=== PATIENT | female | born 1935 | race Caucasian/White ===

== ENCOUNTER → 2017-01-16 | Outpatient (CLI) | payer MEDICARE, BC ==
[~2017-01-16] MED LIST: AMBIEN 10MG10 MG PO; AMBIEN 5MG TABLE5 MG PO; AMBIEN10 MG PO; ASPIR-LOW81 MG PO; ASPIRIN E.C. 8181 MG PO; ASTELIN NASAL S34 ML NS; ATENOLOL PO; ATENOLOL50 MG PO; ATIVAN 0.50.5 MG/TAB PO; ATIVAN0.5 MG PO; ATORVASTATIN; AZO-CRANBERRY450 MG PO; BENADRYL; CALCIUM CITRAT200 MG PO; CARDI-OMEGA1000 MG PO; CATAPRES 0.1MG0.1 MG PO; CECLOR 250MG250 MG PO; CENTRUM SILVER1 TA1 PO; CENTRUM SILVER1 TA2 PO; CENTRUM SILVER1 TAB PO; CIPRO 500MG TA500 MG PO; CITRACAL + D 311 TAB PO; CITRACAL + D CA1 TAB PO; CLARITIN10 MG PO; COLACE 100100 MG/CAP PO; COREG 25MG25 MG/TAB PO; COREG12.5 MG PO; COREG25 MG PO; COUMADIN 5MG5 MG/TAB PO; COUMADIN3 MG PO; COUMADIN4 MG PO; COZAAR100 MG PO; CYANOCOBAL1000 MCG/1; DAZIDOX10 MG PO; DIAZIDE; DIOVAN160 M1 PO; DIOVAN160 MG PO; DYAZIDE 25 MG-31 CAP PO; EXCEDRIN 250 MG1 TAB PO; EXCEDRIN TENSION HA PO; EXCEDRIN1 TAB PO; FIBER CHOICE1 CTB PO; FIORICET W/CODE1 CA1 PO; FISH OIL CONC1000 MG PO; FISH OIL1000 MG PO; FLEXERIL 1010 MG/TAB PO; FLEXERIL10 MG PO; FLONASE NASAL S16 GM NS; FOLIC ACID 40400 MCG PO; FOLIC ACID PO; FOLIC ACID800 MCG PO; IBUPROFEN; IRON325 M1 PO; LEVAQUIN 250MG250 MG PO; LEVAQUIN 5500 MG/TA1 PO; LIPITOR 10MG10 MG PO; LIPITOR20 MG PO; LISINOPRIL20 MG PO; LISINOPRIL5 MG PO; LORTAB 5/500 501 TAB PO; LORTAB 7.5/5001 TAB PO; MACROBID 1100 MG/CAP PO; MACROBID100 MG PO; MAXZIDE-25MG TA1 TAB PO; MEPEREDINE50 MG PO; METRONIDAZOLE500 MG PO; MIRALAX PA17 GM/Dose PO; MIRALAX17 GM/DOSE PO; NEURONTIN100 MG/CAP PO; NORCO 325 MG-101 TAB PO; NORCO 325 MG-7.1 TAB PO; NORVASC 10MG10 MG PO; NORVASC 5MG5 MG/TAB PO; NORVASC5 MG PO; PLAVIX 75MG TAB75 MG PO; POLY IRON PN1 TAB PO; PREDNISONE20 MG PO; PREMARIN VAG42.5 GM VG; PRILOSEC 20MG20 MG PO; PRILOSEC10 MG PO; PRINIVIL20 MG PO; PROMETHAZINE V473 M2 PO; ROXICODONE 55 MG/TAB PO; SOMA 350MG350 MG/TAB PO; STOOL SOFTENER; STOOL SOFTENER100 M1 PO; TENORMIN50 MG PO; TRIAMTERENE W/H1 CAP PO; TRIMPEX100 MG PO; TUSSIN DM 10 M118 M1 PO; TYLENOL 500MG500 MG PO; TYLENOL EXTRA500 M1 PO; ULTRAM 50MG TAB50 MG PO; VITAMIN C PURE500 M1 PO; VITAMIN C500 MG PO; ZINC NATURAL50 MG PO; ZINC SO4 PO; ZINC50 M2 PO; ZITHROMAX Z PA250 MG PO; [UNRECOGNIZED DRUG - OTHER]
[2017-01-16 11:56] LABS: BASO # 0.1 (0.0-0.2); EOS # 0.1 (0.0-0.7); EOS % 0.7 % (0-4.0); GRAN # 7.3 (1.4-6.5); HEMATOCRIT 43.7 % (37.0-47.0); HEMOGLOBIN 14.9 g/dl (12.5-16.0); LYMPH # 1.5 (1.2-3.4); LYMPH % 15.5 % (20.0-51.0); MEAN CELL VOLUME 90 fl (80.0-100.0); MEAN CORPUSCULAR HEMOGLOBIN 31 pg (27.0-31.0); MEAN CORPUSCULAR HGB CONC 34 g/dl (33.0-37.0); MEAN PLATELET VOLUME 9.3 fl (7.4-10.4); MONO # 0.4 (0.1-0.6); MONO % 4.6 % (1.7-9.3); PLATELET COUNT 217 K/mm3 (130-400); RED BLOOD COUNT 4.88 M/mm3 (4.10-5.30); REDCELL DISTRIBUTION WIDTH-CV 13.3 % (11.5-14.5); WHITE BLOOD COUNT 9.3 K/mm3 (4.8-10.8)
[2017-01-16 12:00] LABS: ADJUSTED CALCIUM 9.5 mg/dL (8.4-10.2); ALBUMIN 4.3 gm/dL (3.5-5.0); CALCIUM 9.7 mg/dL (8.4-10.2); CREATININE, serum 0.77 mg/dL (0.52-1.25); POTASSIUM 3.6 mmol/L (3.4-5.0); TOTAL PROTEIN 7.5 gm/dL (6.4-8.2)
== END ==
LOC: COL.LAB 10:41
PROVIDERS: Family Medicine
DX: K52.89 Other specified noninfective gastroenteritis and colitis (principal)

== ENCOUNTER 2017-04-29 21:06 | Emergency (ER) | payer MEDICARE, BC ==
[2008-05-01 10:55] VITALS: BP 165/90
[~2017-04-29] VITALS: Ht 154.9 cm; Wt 80.0 kg
[~2017-04-29 21:06] MED LIST changes: -MACROBID 1100 MG/CAP PO; -MAXZIDE-25MG TA1 TAB PO
[2017-04-29] MEDS ORDERED: MAXZIDE-25MG TA1 TAB PO (21:13)
[2017-04-29 21:24] LABS: BASO # 0.1 (0.0-0.2); BASO % 1.1 % (0.0-2.0); EOS # 0.1 (0.0-0.7); EOS % 2.3 % (0-4.0); GRAN # 2.3 (1.4-6.5); GRAN % 43.6 % (42.2-75.2); HEMATOCRIT 38.5 % (37.0-47.0); HEMOGLOBIN 13.2 g/dl (12.5-16.0); LYMPH # 2.3 (1.2-3.4); LYMPH % 43.1 % (20.0-51.0); MEAN CELL VOLUME 89 fl (80.0-100.0); MEAN CORPUSCULAR HEMOGLOBIN 30 pg (27.0-31.0); MEAN CORPUSCULAR HGB CONC 34 g/dl (33.0-37.0); MEAN PLATELET VOLUME 9.5 fl (7.4-10.4); MONO # 0.5 (0.1-0.6); MONO % 9.7 % (1.7-9.3); PLATELET COUNT 174 K/mm3 (130-400); RED BLOOD COUNT 4.34 M/mm3 (4.10-5.30); WHITE BLOOD COUNT 5.2 K/mm3 (4.8-10.8)
[2017-04-29 21:41] LABS: ADJUSTED CALCIUM 8.8 mg/dL (8.4-10.2); ALANINE AMINOTRANSFERASE 24 U/L (9-52); ALKALINE PHOSPHATASE 74 U/L (50-136); ANION GAP 9 mmol/L (7-16); BILIRUBIN,TOTAL 0.6 mg/dL (0.0-1.0); BLOOD UREA NITROGEN 13 mg/dL (7-17); CALCIUM 8.8 mg/dL (8.4-10.2); CARBON DIOXIDE 29 mmol/L (22-30); CHLORIDE 96 mmol/L (98-107); CREATININE, serum 0.69 mg/dL (0.52-1.25); GLUCOSE 89 mg/dL (74-106); LIPASE 69 U/L (23-300); POTASSIUM 3.1 mmol/L (3.4-5.0); SODIUM 135 mmol/L (137-145); TOTAL PROTEIN 6.6 gm/dL (6.4-8.2)
[2017-04-29 21:43] LABS: C-REACTIVE PROTEIN < 0.5 mg/dL (0.0-0.9)
[2017-04-29 21:52] LABS: PH 7 (5-8); SQUAMOUS EPITHELIAL 0-2 /hpf; URINE APPEARANCE Hazy; URINE BACTERIA Rare /hpf; URINE BILIRUBIN Negative (NEGATIVE); URINE BLOOD Negative (NEGATIVE); URINE COLOR Yellow; URINE GLUCOSE Negative (NEGATIVE); URINE KETONE Negative (NEGATIVE); URINE RBC 0-2 /hpf; URINE UROBILINOGEN Negative (NEGATIVE)
[2017-04-29 21:53] LABS: URINE WBC >50 /hpf
[2017-04-29 21:55] LABS: ERYTHROCYTE SEDIMENTATION RATE 2 mm/hr (0-30)
[2017-04-29] MEDS ORDERED: CIPRO 500MG TA500 MG PO (22:11)
[2017-04-29 22:29] VITALS: BP 159/94; PULSE 79
== END 2017-04-29 22:29 | disposition home or self-care (01) ==
LOC: COL.ER 21:06
PROVIDERS: Family Medicine
DX: R42 Dizziness and giddiness (principal); R51 Headache; N30.00 Acute cystitis without hematuria; I10 Essential (primary) hypertension; K21.9 Gastro-esophageal reflux disease without esophagitis; Z90.49 Acquired absence of other specified parts of digestive tract
CPT/HCPCS: J2405; J7030

== ENCOUNTER 2017-05-03 06:56 | Emergency (ER) | payer MEDICARE, BC ==
[2008-05-01 10:55] VITALS: BP 165/90
[~2017-05-03] VITALS: Ht 154.9 cm; Wt 80.0 kg
[~2017-05-03 06:56] MED LIST changes: +MAXZIDE-25MG TA1 TAB PO
[2017-05-03 06:59] VITALS: TEMP 98.1
[2017-05-03 08:10] LABS: ALANINE AMINOTRANSFERASE 25 U/L (9-52); ALBUMIN 4.1 gm/dL (3.5-5.0); ALKALINE PHOSPHATASE 85 U/L (50-136); ANION GAP 10 mmol/L (7-16); BILIRUBIN,TOTAL 0.6 mg/dL (0.0-1.0); BLOOD UREA NITROGEN 12 mg/dL (7-17); CALCIUM 9.1 mg/dL (8.4-10.2); CARBON DIOXIDE 28 mmol/L (22-30); CHLORIDE 94 mmol/L (98-107); CREATININE, serum 0.71 mg/dL (0.52-1.25); GLUCOSE 99 mg/dL (74-106); LIPASE 100 U/L (23-300); POTASSIUM 3.5 mmol/L (3.4-5.0); SODIUM 132 mmol/L (137-145)
[2017-05-03 08:11] LABS: C-REACTIVE PROTEIN < 0.5 mg/dL (0.0-0.9)
[2017-05-03 08:23] LABS: BASO # 0.1 (0.0-0.2); BASO % 1.1 % (0.0-2.0); EOS # 0.1 (0.0-0.7); EOS % 2.6 % (0-4.0); GRAN # 3.2 (1.4-6.5); GRAN % 58.8 % (42.2-75.2); HEMATOCRIT 39.9 % (37.0-47.0); HEMOGLOBIN 13.8 g/dl (12.5-16.0); LYMPH # 1.5 (1.2-3.4); LYMPH % 27.4 % (20.0-51.0); MEAN CELL VOLUME 88 fl (80.0-100.0); MEAN CORPUSCULAR HEMOGLOBIN 31 pg (27.0-31.0); MEAN CORPUSCULAR HGB CONC 35 g/dl (33.0-37.0); MEAN PLATELET VOLUME 9.6 fl (7.4-10.4); MONO # 0.5 (0.1-0.6); MONO % 9.7 % (1.7-9.3); PLATELET COUNT 196 K/mm3 (130-400); RED BLOOD COUNT 4.53 M/mm3 (4.10-5.30); WHITE BLOOD COUNT 5.4 K/mm3 (4.8-10.8)
[2017-05-03 08:40] LABS: PH 7 (5-8); SQUAMOUS EPITHELIAL None Seen /hpf; URINE APPEARANCE Clear; URINE BACTERIA None Seen /hpf; URINE BILIRUBIN Negative (NEGATIVE); URINE BLOOD Negative (NEGATIVE); URINE COLOR Straw; URINE GLUCOSE Negative (NEGATIVE); URINE KETONE Negative (NEGATIVE); URINE RBC 0-2 /hpf; URINE UROBILINOGEN Negative (NEGATIVE); URINE WBC 0-2 /hpf
[2017-05-03] MEDS ORDERED: MACROBID 1100 MG/CAP PO (09:17)
[2017-05-03 09:56] VITALS: BP 153/94; PULSE 93
== END 2017-05-03 10:20 | disposition home or self-care (01) ==
LOC: COL.ER 06:56
PROVIDERS: Family Medicine
DX: N39.0 Urinary tract infection, site not specified (principal); F32.9 Major depressive disorder, single episode, unspecified; Z87.891 Personal history of nicotine dependence
CPT/HCPCS: J0696; J2405; J7030

== ENCOUNTER → 2017-07-25 | Outpatient (CLI) | payer MEDICARE, BC ==
[~2017-07-25] MED LIST changes: +MACROBID 1100 MG/CAP PO
== END ==
LOC: MC.RAD 07-18 11:40
DX: Z12.31 Encounter for screening mammogram for malignant neoplasm of breast (principal)

== ENCOUNTER → 2017-11-12 | Outpatient (CLI) | payer MEDICARE, BC | LOC: COL.RAD 15:00 | DX: N30.20 Other chronic cystitis without hematuria (principal); Z96.0 Presence of urogenital implants ==

== ENCOUNTER → 2018-01-30 | Outpatient (CLI) | payer MEDICARE, BC | LOC: COL.RAD 08:58 | DX: M19.071 Primary osteoarthritis, right ankle and foot (principal) | CPT/HCPCS: J3301; Q9967 ==

== ENCOUNTER → 2018-04-30 | Outpatient (CLI) | payer MEDICARE, BC | LOC: COL.RAD 14:25 | DX: M25.551 Pain in right hip (principal) | CPT/HCPCS: J3301; Q9967 ==

== ENCOUNTER → 2018-09-08 | Outpatient (CLI) | payer MEDICARE, BC | LOC: MC.RAD 11:40 | DX: Z12.31 Encounter for screening mammogram for malignant neoplasm of breast (principal) ==

== ENCOUNTER 2018-10-09 12:51 | Inpatient (IN) | payer MEDICARE, BC ==
[~2018-10-09] VITALS: Ht 154.9 cm; Wt 73.1 kg
[2018-11-19] VITALS (10 sets, daily range): BP systolic 110–141; BP diastolic 65–82; PULSE 65–75; TEMP 98–98.2
--- NOTE | 2018-11-19 08:45 | NUR ---
arrived per WC to room 331, prepped for surgery without incident, explanation given to patient and her for going to and returning from surgery, verbalizes understanding, assisted up to bathroom and then back to bed
--- NOTE | 2018-11-19 10:50 | NUR ---
appears to be sleeping, in bed with eyes closed, resp quiet and easy
--- NOTE | 2018-11-19 11:14 | NUR ---
assisted up to bathroom and voided qs, then back to bed
--- NOTE | 2018-11-19 13:40 | NUR ---
to surgery per bed
--- NOTE | 2018-11-19 17:20 | NUR ---
returned to room from PACU per bed, awake and alert, IV infusing and placed on pump at 125ml/hr, O2 on at 3L\NC and O2 sat 100%, SCDs and RAUL hose on bilaterally, has aquacel dressing to right hip CD&I with ice, rolled to side and no wrinkles in linens or wires under patient, lovett cath patent draining clear yellow urine, full assessment completed, see interventions for further info, has sensation to foot on the left and to her knee on the right, is able to move ankle on the left and only gross motor movement to right, denies needs, at bedside
--- NOTE | 2018-11-19 17:45 | NUR ---
rests between checks, states she is hungry, provided applesauce, if tolerates well will order regular food, instructed on ordering and verbalizes understanding
--- NOTE | 2018-11-19 18:10 | NUR ---
has ordered something to eat
--- NOTE | 2018-11-19 18:54 | NUR ---
bedside shift report given to JOANNA Magallanes, has sensation to feet and is able to do ankle pump, eating supper
--- NOTE | 2018-11-19 21:00 | NUR ---
Assessment completed. Patient is A&O x 4. Post-op vitals stable. Currently on 3 liters of supplemental O2 via nasal cannula per orders. Began oral pain medication this evening. Bulky foam tape dressing to right hip is CDI with an ice pack maintained to hip. Pedal pulses intact. BLE mary hose/scds on. Encouraged ankle pumps when able to do so. Tolerated diet with no c/o nausea. Arthur catheter to DD with yellow clear urine draining. IVF infusing with intermittent antibiotic. Patient reported sensation to feet and was able to wiggle toes, unable to lift or move feet. Dangled on the edge of the bed with assist x 2 this evening. Assisted with repositioning back into to bed. Denies any concerns or needs, call light is within reach.
[2018-11-20 00:48] VITALS: BP 114/58; PULSE 91; TEMP 98.6
--- NOTE | 2018-11-20 05:24 | NUR ---
Patient has rested well the first half of the night and then took a prn Ambien to assist with sleep and has been able to sleep for short periods of time since then. VSS. Aquacell dressing to right hip remains CDI with a fresh ice pack applied this morning. Arthur catheter remains to DD with yellow clear urine draining. IVF infusing per orders. Denies any concerns or needs at this time. Bed is in a low position with call light in reach.
[2018-11-20 05:46] VITALS: BP 104/60; PULSE 87; TEMP 98.2
[2018-11-20 06:21] LABS: HEMOGLOBIN 12.4 g/dl (12.5-16.0)
[2018-11-20 06:30] LABS: HEMATOCRIT 36.3 % (37.0-47.0)
[2018-11-20 09:07] VITALS: BP 104/50; PULSE 80; TEMP 98.1
--- NOTE | 2018-11-20 10:22 | NUR ---
First visit from the behavioral specialist. No needs right now.
[2018-11-20 12:19] VITALS: BP 135/98; PULSE 83; TEMP 97.8
--- NOTE | 2018-11-20 15:58 | NUR ---
KAZ and SW student met with patient to discuss discharge planning. Patient lives in [place] with her Ricardo. patients PCP is Dr Alvaro Keys and she obtains her medications from [facility]. Patient would like to go to [facility] and [facility] if they do not have a bed. Choice form obtained and placed on chart. KAZ called jolene at [facility] bed and made referrals.
[2018-11-20 16:13] VITALS: BP 108/52; PULSE 82; TEMP 98.3
--- NOTE | 2018-11-20 20:00 | NUR ---
Patient in bed resting, alert and oriented x 3. Shift assessment complete. Aquacell to right hip with minimal drainage present. Ice pack maintained to hip. Pedal pulses intact. SCD's and Marc hose to BLE. Patient up to restroom, stand by assist. Voided clear yellow urine. Ambulated >30 feet with walker. States she would like something for pain but will call when she needs it. Assisted patient to reposition in bed. Denies further needs at this time.
[2018-11-20 20:50] VITALS: BP 125/65; PULSE 79; TEMP 98.6
[2018-11-21 04:09] VITALS: BP 121/59; PULSE 87; TEMP 98.2
--- NOTE | 2018-11-21 06:22 | NUR ---
Patient has rested intermittently through the night. Has been up multiple times to the restroom, stand by assist with walker. Patient has complained of pain to right hip and requested pain medications through the night; Medications given per orders. Ice maintained to right hip. SCDs and Tedhose maintained to BLE. Denies further needs at this time. Will report off to day shift.
--- NOTE | 2018-11-21 07:14 | NUR ---
REPORT FROM MARIE MARSHALL. PT RESTING IN BED. PLAN ON TRANSFER TO [facility]. REQUEST MILL STENCILER FOLLOW UP WITH SWB CORDINATOR THERE. GEMA SUAREZ APRN ATTEMPTED TO CONTACT [facility] FOR PROVIDER TO PROVIDER REPORT AND THEY DID NOT HAVE THIS PATEINT ON LIST OF TRANSFERS.
[2018-11-21] MEDS ORDERED: XARELTO10 MG PO (07:32)
[2018-11-21] MEDS ORDERED: ROXICODONE 55 MG/TAB PO (07:33)
[2018-11-21] MEDS ORDERED: TYLENOL 500MG500 MG PO (07:33)
[2018-11-21] MEDS ORDERED: NORCO 325 MG-7.1 TAB PO (07:33)
[2018-11-21] MEDS ORDERED: REQUIP 0.5MG0.5 MG PO (07:34)
[2018-11-21 08:18] VITALS: BP 87/49; PULSE 81; TEMP 98.6
--- NOTE | 2018-11-21 08:47 | NUR ---
PT SITTING UP IN BED TOOK AM MEDS ORDERED. DRESSING TO RIGHT HIP WITH SCANT DRAINAGE NOTED. PT REFUSING BREAKFAST. PLAN ON TRANSFER TO [facility] TOMMORROW.
[2018-11-21 09:58] VITALS: BP 95/53
--- NOTE | 2018-11-21 11:52 | NUR ---
KAZ spoke with Verenice at [facility]. She does not know if they will be able to accept over the weekend due to dr coverage. KAZ called [facility] who reports they may not be able to accept over the weekend either. KAZ will follow up this afternoon.
[2018-11-21 12:03] VITALS: BP 96/48; PULSE 75; TEMP 98.4
--- NOTE | 2018-11-21 13:32 | NUR ---
[facility] can accept patient tomorrow for skilled. Nurse to Nurse #[phone] x [phone] Doc to Doc #[phone] Dr Pate Plan for patient to leave at 9 AM.
--- NOTE | 2018-11-21 14:04 | NUR ---
SW informed patient and of plan tomorrow morning for early dc. Both are agreeable.
[2018-11-21 16:29] VITALS: BP 102/59; PULSE 78; TEMP 98.3
--- NOTE | 2018-11-21 18:57 | NUR ---
report to Billie MARSHALL.
--- NOTE | 2018-11-21 20:00 | NUR ---
Patient in bed resting; alert and oriented x3. Shift assessment complete. Aquacell to right hip with minimal drainage present. Marc hose and SCDs to BLE. Patient ambulated >50 feet with walker and stand by assist. Denies pain at this time. Denies further needs at this time.
[2018-11-21 20:21] VITALS: BP 95/54; PULSE 57; TEMP 98.5
[2018-11-22 03:55] VITALS: BP 114/56; PULSE 91; TEMP 98.6
--- NOTE | 2018-11-22 06:24 | NUR ---
Patient has rested well through the night. Encouraged IS use through the night. Has been up to restroom multiple times through the night, stand by assist with walker. Requested pain medicaions this AM, given per orders. Denies further needs at this time. Will report off to day shift.
[2018-11-22 06:50] LABS: BASO % 0.4 % (0.0-2.0); EOS # 0.3 (0.0-0.7); EOS % 3.2 % (0-4.0); GRAN # 6.7 (1.4-6.5); GRAN % 70.1 % (42.2-75.2); HEMOGLOBIN 11.5 g/dl (12.5-16.0); LYMPH # 1.5 (1.2-3.4); LYMPH % 15.2 % (20.0-51.0); MEAN CELL VOLUME 90 fl (80.0-100.0); MEAN CORPUSCULAR HEMOGLOBIN 30 pg (27.0-31.0); MEAN CORPUSCULAR HGB CONC 34 g/dl (33.0-37.0); MEAN PLATELET VOLUME 9.6 fl (7.4-10.4); MONO % 10.8 % (1.7-9.3); PLATELET COUNT 178 K/mm3 (130-400); RED BLOOD COUNT 3.79 M/mm3 (4.10-5.30)
--- NOTE | 2018-11-22 08:00 | NUR ---
PATIENT IS SITTING UP IN THE CHAIR THIS MORNING. BREAKFAST TRAY EATEN. PATIENT IS A&O. VSS. UPPER LUNG LOBES CLEAR UPON AUSCULTATION. LUNG BASES DIMINISHED BILATERALLY. PATIENT DENIES SHORTNESS OF BREATH. BOWEL SOUNDS ACTIVE ALL FOUR QUADRANTS. PATIENT TOLERATING FOOD & LIQUIDS WITHOUT COMPLAINTS OF N/V. POSITIVE PEDAL PULSES EQUAL BILATERALLY. 1+ PITTING-EDEMA TO BLE NOTED. RAUL HOSE TO BLE. AQUACEL TO RIGHT HIP. SCANT DRAINAGE NOTED ON AQUACEL DRESSING. AQUACEL REMOVED AND REPLACED WITH NEW AQUACEL DRESSING. LEFT HAND TO INT. CALL LIGHT WITHIN REACH. NO OTHER NEEDS AT THIS TIME.
[2018-11-22 08:35] VITALS: BP 110/44; PULSE 90; TEMP 99
[2018-11-22 12:19] VITALS: BP 118/60; PULSE 88; TEMP 98.4
[2018-11-22 13:06] VITALS: BP 118/60; PULSE 88; TEMP 98.4
--- NOTE | 2018-11-22 13:30 | NUR ---
PATIENT GIVEN 2 TABLETS OF PRN OXYCODONE PRIOR TO TRANSFER. PATIENT PERSONAL BELONGINGS GATHETHERED. PATIENT'S INT DC'D BY HOME ENERGY RATER. PATIENT TOLERATED WELL. PATIENT TAKEN TO PERSONAL VEHICLE VIA WHEELCHAIR BY SURGICAL STAFF. PATIENT TRANSFERRED.
--- NOTE | 2018-11-22 14:03 | NUR ---
REPORT CALLED TO JOANNA SANTOS AT [facility]. PATIENT TRANSFERRED.
== END 2018-11-22 13:30 | disposition swing bed (61) | DRG 470 ==
LOC: JCC 11-19 07:30
PROVIDERS: ADMIT Orthopaedic Surgery
PROC: 0SR90JA Replacement of Right Hip Joint with Synthetic Substitute, Uncemented, Open Approach (ICD-10-PCS; principal; 2018-11-19 14:40)
DX: M16.11 Unilateral primary osteoarthritis, right hip (principal); I10 Essential (primary) hypertension; E78.5 Hyperlipidemia, unspecified; G62.9 Polyneuropathy, unspecified
CPT/HCPCS: A4314; A9284; C1713; C1776; J0690; J1100; J1885; J2250; J2405; J2704; J2765; J7120

== ENCOUNTER → 2018-11-12 | Outpatient (CLI) | payer MEDICARE, BC ==
[2018-11-12 16:21] LABS: HIV 1/2 Antibodies Non-Reactive; HIV-1p24 Antigen Non-Reactive
== END ==
LOC: COL.LAB 15:35
PROVIDERS: Orthopaedic Surgery
DX: Z01.812 Encounter for preprocedural laboratory examination (principal); M16.11 Unilateral primary osteoarthritis, right hip

== ENCOUNTER → 2019-01-19 | Outpatient (CLI) | payer MEDICARE, BC ==
[~2019-01-19] MED LIST changes: +REQUIP 0.5MG0.5 MG PO; +XARELTO10 MG PO
[2019-01-19 11:56] LABS: HEMATOCRIT 40.9 % (37.0-47.0); HEMOGLOBIN 13.9 g/dl (12.5-16.0); MEAN CELL VOLUME 90 fl (80.0-100.0); MEAN CORPUSCULAR HEMOGLOBIN 31 pg (27.0-31.0); MEAN CORPUSCULAR HGB CONC 34 g/dl (33.0-37.0); MEAN PLATELET VOLUME 9.3 fl (7.4-10.4); PLATELET COUNT 200 K/mm3 (130-400); RED BLOOD COUNT 4.55 M/mm3 (4.10-5.30)
[2019-01-19 12:17] LABS: ERYTHROCYTE SEDIMENTATION RATE 4 mm/hr (0-30)
== END ==
LOC: COL.LAB 11:30
PROVIDERS: Orthopaedic Surgery
DX: Z96.641 Presence of right artificial hip joint (principal)

== ENCOUNTER 2021-07-22 18:09 | Inpatient (IN) | payer MEDICARE, BC ==
[~2021-07-22] VITALS: Ht 154.9 cm; Wt 78.2 kg
[~2021-07-22 18:09] MED LIST changes: -NORVASC 10MG10 MG PO; +NORVASC 5MG5 MG/TAB
[2021-07-22 18:53] LABS: COLLECTION METHOD CLEAN CATCH
[2021-07-22 19:08] LABS: MUCOUS Present /lpf; PH 8 (5-8); SQUAMOUS EPITHELIAL None Seen /hpf; URINE APPEARANCE Clear; URINE BACTERIA Rare /hpf; URINE BILIRUBIN Negative (NEGATIVE); URINE BLOOD Negative (NEGATIVE); URINE COLOR Yellow; URINE GLUCOSE Negative (NEGATIVE); URINE KETONE Negative (NEGATIVE); URINE LEUKOCYTE ESTERASE Negative (NEGATIVE); URINE NITRATE Negative (NEGATIVE); URINE PROTEIN(semi-quant) Negative (NEGATIVE); URINE RBC 0-2 /hpf; URINE UROBILINOGEN Negative (NEGATIVE)
[2021-07-22 19:20] LABS: BASO # 0.1 (0.0-0.2); BASO % 1.2 % (0.0-2.0); EOS % 0.6 % (0-4.0); GRAN # 3.1 (1.4-6.5); GRAN % 60.4 % (42.2-75.2); HEMOGLOBIN 14.4 g/dl (12.5-16.0); LYMPH # 1.3 (1.2-3.4); LYMPH % 25.2 % (20.0-51.0); MEAN CELL VOLUME 86 fl (80.0-100.0); MEAN CORPUSCULAR HEMOGLOBIN 31 pg (27.0-31.0); MEAN CORPUSCULAR HGB CONC 36 g/dl (33.0-37.0); MEAN PLATELET VOLUME 9.2 fl (7.4-10.4); MONO # 0.6 (0.1-0.6); MONO % 12.4 % (1.7-9.3); PLATELET COUNT 214 K/mm3 (130-400); RED BLOOD COUNT 4.66 M/mm3 (4.10-5.30); REDCELL DISTRIBUTION WIDTH-CV 12.7 % (11.5-14.5)
[2021-07-22 19:47] LABS: ALBUMIN 4.1 gm/dL (3.4-4.8); BILIRUBIN,TOTAL 0.9 mg/dL (0.2-1.2); CALCIUM 9.3 mg/dL (8.4-10.2); CREATININE, serum 0.82 mg/dL (0.57-1.11); POTASSIUM 3.3 mmol/L (3.5-4.5); TOTAL PROTEIN 7.5 gm/dL (6.2-8.1)
[2021-07-22] MEDS ORDERED: NORCO 325 MG-101 TAB PO (22:18)
[2021-07-22] MEDS ORDERED: HIPREX PO (22:19)
[2021-07-22 22:57] LABS: CALCIUM 9.1 mg/dL (8.4-10.2); CREATININE, serum 0.79 mg/dL (0.57-1.11); MAGNESIUM 1.7 mg/dL (1.6-2.6); POTASSIUM 3.2 mmol/L (3.5-4.5)
[2021-07-23 00:08] VITALS: BP 140/66; PULSE 71; TEMP 98.7
--- NOTE | 2021-07-23 00:49 | NUR ---
pt arrived to medical floor room 319 via ed staff at 2345 and able to ambulate to bed, , a/ox4, vss, o2 room air, reports left flank pain 04/29, med rec complete, medication list copy in pts chart, pt's 2 own medications cefdenir and levofloaxcin in med room ready for pharmacy to pickup. Pt oriented to floor, visitors policy. Assement complete. All questions/concerns answered. Pt expresses no additonal needs at this time. call light within reach.
[2021-07-23 02:42] LABS: CALCIUM 8.8 mg/dL (8.4-10.2); CREATININE, serum 0.74 mg/dL (0.57-1.11); POTASSIUM 3.1 mmol/L (3.5-4.5)
[2021-07-23 04:08] VITALS: BP 108/50; PULSE 75; TEMP 98.1
--- NOTE | 2021-07-23 05:36 | NUR ---
PT HAD UNEVENTFUL NIGHT, SLEPT INTERMITTENTLY, PT REMAINS A/OX4,PLEASANT AND COOPERATIVE. 02 ROOM AIR, SCD'S ON, POTASSIUM PO REPLACED. POC DISCUSSED WITH PT. ALL QUESTIONS/CONCERNS ANSWERED. FLUID RESTRICTION/1200, NO FREE WATER IN PLACE. PT VERBALIZES UNDERSTANDING. CALL LIGHT WITHIN REACH.
[2021-07-23 07:17] LABS: BASO % 0.6 % (0.0-2.0); EOS % 0.8 % (0-4.0); GRAN # 2.4 (1.4-6.5); GRAN % 47.7 % (42.2-75.2); HEMATOCRIT 36.6 % (37.0-47.0); LYMPH # 1.8 (1.2-3.4); LYMPH % 36.7 % (20.0-51.0); MEAN CELL VOLUME 86 fl (80.0-100.0); MEAN CORPUSCULAR HEMOGLOBIN 31 pg (27.0-31.0); MEAN CORPUSCULAR HGB CONC 36 g/dl (33.0-37.0); MEAN PLATELET VOLUME 8.9 fl (7.4-10.4); MONO # 0.7 (0.1-0.6); PLATELET COUNT 181 K/mm3 (130-400); RED BLOOD COUNT 4.25 M/mm3 (4.10-5.30); REDCELL DISTRIBUTION WIDTH-CV 12.8 % (11.5-14.5)
[2021-07-23 07:34] LABS: CALCIUM 9.3 mg/dL (8.4-10.2); POTASSIUM 3.4 mmol/L (3.5-4.5)
[2021-07-23 07:57] VITALS: BP 104/47; PULSE 79; TEMP 98
--- NOTE | 2021-07-23 08:00 | NUR ---
Patient sitting up in bed eating breakfast. A&Ox4. VSS. IV CDI. Reports some nausea, nurse encouraged the patient to eat some food and to keep the HOB elevated. Patient verbalized an understanding. Denies pain. Call light within reach.
[2021-07-23 09:10] LABS: CREATININE, serum 0.7 mg/dL (0.57-1.11)
[2021-07-23 10:30] LABS: CALCIUM 8.6 mg/dL (8.4-10.2); CREATININE, serum 0.74 mg/dL (0.57-1.11); POTASSIUM 3.2 mmol/L (3.5-4.5)
[2021-07-23 13:06] VITALS: BP 112/58; PULSE 75; TEMP 97.3
--- NOTE | 2021-07-23 13:59 | NUR ---
Sw met with the pt who stated her preference to return home to spouse, Ricardo ph# [phone] )once medically stable. The is independent on all adLs and uses a walker and walking stick. The pt pcp is Terri Ornelas.The pt does have a DPOA-HC and it's in the chart. No other needs stated at this time. Sw to await further recommendations and follow up as needed. D/c: Home with
[2021-07-23 14:17] LABS: CALCIUM 8.9 mg/dL (8.4-10.2); CREATININE, serum 0.77 mg/dL (0.57-1.11); POTASSIUM 3.9 mmol/L (3.5-4.5)
[2021-07-23 17:30] VITALS: BP 114/54; PULSE 75; TEMP 98.4
--- NOTE | 2021-07-23 18:13 | NUR ---
Patient had an uneventful day, A&Ox4. VSS. IV CDI, fluids infusing. Denies pain, discomfort, and nausea. No further needs expressed. Call light within reach. Call light within reach
[2021-07-23 19:06] LABS: CALCIUM 8.7 mg/dL (8.4-10.2); CREATININE, serum 0.7 mg/dL (0.57-1.11); MAGNESIUM 1.8 mg/dL (1.6-2.6); POTASSIUM 3.8 mmol/L (3.5-4.5)
[2021-07-23 19:28] LABS: TSH w REFLEX 1.297 uIU/mL (0.350-4.940)
[2021-07-23 20:14] VITALS: BP 135/62; PULSE 78; TEMP 98.5
[2021-07-23 23:02] LABS: CALCIUM 8.6 mg/dL (8.4-10.2); CREATININE, serum 0.67 mg/dL (0.57-1.11); POTASSIUM 3.6 mmol/L (3.5-4.5)
[2021-07-24] VITALS: BP 110/52; PULSE 84; TEMP 98.6
[2021-07-24 00:38] VITALS: BP 104/51; PULSE 86; TEMP 98.5
[2021-07-24 02:50] LABS: CALCIUM 8.4 mg/dL (8.4-10.2); CREATININE, serum 0.64 mg/dL (0.57-1.11); POTASSIUM 3.4 mmol/L (3.5-4.5)
[2021-07-24 03:54] VITALS: BP 133/67; PULSE 81; TEMP 98.4
--- NOTE | 2021-07-24 05:56 | NUR ---
PT SLEPT INTERMITTENTLY THROUGH OUT NIGHT, REMAINS A/OX4, VSS, 02 ROOM AIR. DENIES N,V,D.REPORTS PAIN 7/10 TO LOWER BACK. D5 INFUSING AT 100ML/HR TO LAC. PT ABLE TO AMBULATE TO BATHROOM SBA, I&O NOTED AND RECORDED. ALL QUESTIONS/CONCERNS ANSWERED. ALL NEEDS MET. CALL LIGHT WITHIN REACH.
[2021-07-24 07:04] LABS: CALCIUM 8.4 mg/dL (8.4-10.2); CREATININE, serum 0.61 mg/dL (0.57-1.11); POTASSIUM 3.3 mmol/L (3.5-4.5)
[2021-07-24 07:36] VITALS: BP 154/75; PULSE 93; TEMP 98.7
--- NOTE | 2021-07-24 09:17 | NUR ---
Initial visit; Patient thanked Hospice Rn for looking in on her and offering Prayer and encouragement along with God's blessings. Hospice Rn will follow up.
[2021-07-24] MEDS ORDERED: SENEXON-S 50-81 EACH PO (10:03)
[2021-07-24 11:34] VITALS: BP 117/63; PULSE 80; TEMP 97.8
--- NOTE | 2021-07-24 11:54 | NUR ---
Shift assessment completed. Scheduled medications given. Patient C/O 04/29 pain in the RUQ of her abdomen, dysuria, and right flank pain. Lidocaine patch placed on right flank, scheduled norco given. VSS. Patient A&O. Patient will discharge home later this afternoon. Patient denies any further pain, discomfort, SOA , or needs at this time. Call light in reach.
--- NOTE | 2021-07-24 14:03 | NUR ---
Noon meds given. Patient deemed fit for discharge. IV DC'd, catheter intact, no signs of phlebitis. Discharge education/instructions given. All questions answered. VSS. Patient denies any further needs at this time. Patient escorted from the building by [facility] Staff via wheelchair. Son transporting home.
== END 2021-07-24 13:45 | disposition home or self-care (01) | DRG 641 ==
LOC: COL.ER 18:09 → MEDICAL 22:39
PROVIDERS: Emergency Medicine; Internal Medicine; Physician Assistant; ADMIT Internal Medicine
DX: E87.1 Hypo-osmolality and hyponatremia (principal); E87.8 Other disorders of electrolyte and fluid balance, not elsewhere classified; G25.81 Restless legs syndrome; G47.00 Insomnia, unspecified; D51.0 Vitamin B12 deficiency anemia due to intrinsic factor deficiency; M19.90 Unspecified osteoarthritis, unspecified site; G89.29 Other chronic pain; K59.00 Constipation, unspecified; M54.9 Dorsalgia, unspecified; Z90.710 Acquired absence of both cervix and uterus; Z96.651 Presence of right artificial knee joint; Z96.642 Presence of left artificial hip joint; E87.5 Hyperkalemia; R30.0 Dysuria; K86.9 Disease of pancreas, unspecified
CPT/HCPCS: 99223-AI; 99233-AI; 99239; J1170; J2270; J2405; J2765; J7030; J7070; Q9967